=== PATIENT | male | born 1965 | race Caucasian/White ===

== ENCOUNTER 2017-02-28 14:08 | Emergency (ER) | payer OTHER ==
[~2017-02-28] VITALS: Ht 177.8 cm; Wt 88.0 kg
[~2017-02-28 14:08] MED LIST: ALBU1AER9 PO; ASPI81TA28 PO; CANA1TAB PO; LIRA18IN INJ
[2017-02-28 14:11] VITALS: BP 143/95; TEMP 36.7; Ht 177.8 cm; Wt 88.0 kg
[2017-02-28] MEDS ORDERED: LIDOCAINE/EPINEPHRINE 1% 20 ML VIAL INFIL STA (14:39)
--- NOTE | 2017-02-28 14:48 | EMERGENCY ROOM VISIT NOTE ---
ED Visit Note First contact with patient: 14:17 CHIEF COMPLAINT: Hand laceration HISTORY OF PRESENT ILLNESS: This 51-year-old male patient presents to the emergency department approximately one hour after cutting the posterior aspect of the right hand, just proximal to the fifth finger while at work. The patient states he hit his hand on a sharp, dirty oil cap. There was no crush injury or fall. The bleeding has stopped. Denies weakness or numbness of the hand or fingers. The patient rates the pain as minimal and 0/10. The patient denies any other injuries. The patient's Tetanus shot is up to date. REVIEW OF SYSTEMS: A 6 system review of systems was completed with positives and pertinent negatives listed in the HPI. ALLERGIES: None MEDICATIONS: Invokana, Flonase, Victoza, Lisinopril, Levitra PMH: Diabetes Mellitus Type 2 SOCIAL HISTORY: The patient lives locally with family. He denies drug, alcohol, tobacco use. PHYSICAL EXAM: Vital Signs: Reviewed Nurse's notes, vital signs stable. GENERAL : This is a 51 year old white male, in no acute distress, well-developed, well- nourished. SKIN: There is a 2 cm long laceration on the posterior aspect of the right hand, just proximal to the 5th digit. There is a small, 0.5cm laceration on the posterior aspect of the right hand, just proximal to the 4th digit. The edges gape apart with traction. There is no foreign material in the wound and it looks clean. There is minimal active bleeding. No deep structures such as tendons, bones, or significant blood vessels are seen in the base of the wound. Normal strength and movement of the fingers and wrist. Capillary refill less than 2 seconds. Normal sensation to light and sharp touch. EMERGENCY DEPARTMENT COURSE: I examined the patient. Verbal consent was obtained to perform the procedure, which was performed by the PA student under my direct supervision. Using sterile technique the wound was cleansed with Betadine. The area was sterilely draped. 5 ml of 1% lidocaine with epinephrine was used to anesthetize the laceration on the hand. Once the patient was anesthetized, the wound was copiously irrigated under pressure with sterile saline. The wound was explored and was as described above. The larger laceration was repaired using 10 simple interrupted 4-0 nylon sutures with the wound edges being well approximated. The smaller laceration was repaired using 2 simple interrupted 4-0 nylon sutures with the wound edges being well approximated. The patient tolerated the procedure well. Hemostasis was achieved. The area was cleaned with sterile saline and dressed with bacitracin ointment and bandage. The patient will be started on Keflex to prevent infection , due to his history of diabetes. The patient was discharged home in good condition. I attest that I have personally reviewed the patient's current medication list. Blood Pressure Screening: Patient was found to have a slightly elevated blood pressure due to circumstances. I do not believe that the patient requires hypertension monitoring. DIFFERENTIAL DIAGNOSIS: Laceration, abrasion, contusion, avulsion, fracture, tendon injury, and others DIAGNOSIS: Hand laceration Current/Historical Medications Scheduled Canagliflozin (Invokana), 300 MG PO DAILY Cephalexin Monohydrate (Keflex), 500 MG PO TID Fluticasone Propionate (Nasal) (Flonase Allergy Relief), 2 SPRAYS TOSHA DAILY Liraglutide (Victoza), 1.8 MG INJ DAILY Lisinopril (Lisinopril), 2.5 MG PO DAILY Vardenafil (Levitra), 10 MG PO DIRECTED [Proair], 2 PUFFS INH PRN UD Allergies Coded Allergies: No Known Allergies (Unverified , 09/29/13) Vital Signs Date Time Temp Pulse Resp B/P (MAP) Pulse Ox O2 Delivery O2 Flow Rate FiO2 02/28/17 15:44 112 16 95 02/28/17 14:11 36.7 114 16 143/95 96 Room Air Departure Information Impression Primary Impression: Hand laceration Dispostion Home / Self-Care Condition GOOD Prescriptions Cephalexin Monohydrate (Keflex) 500 Mg Cap 500 MG PO TID for 7 Days, #21 CAP Prov: Lucita Justice PA-C 02/28/17 Referrals Benoit Valverde DO (PCP) Patient Instructions ED Laceration Hand, [facility] Additional Instructions You have received 11 sutures on your right hand. These sutures are NOT dissolvable and WILL need to be removed by a health care provider in 8-10 days. You can return to the Emergency Department or contact your Primary Care Provider to have the sutures removed. Cephalexin(Keflex) 500mg: Take one pill three times daily for 7 days to prevent skin infection. All antibiotics can cause diarrhea. If this occurs and you feel worse or it does not resolve in 1-2 days follow up with your doctor or return to the Emergency Department as this could be signs of serious underlying problems. Any medication can cause an allergic reaction, stop the pills immediately and return to the ER for rash, hives, breathing difficulties, or swelling. Proper wound care is essential for adequate wound healing and infection prevention. You can shower and clean the wound with soap and water. Do not scour over the wound, pat dry with a towel. Do not submerse the wound (i.e. bathe or dish wash) until the sutures have been removed. You can use an antibiotic ointment with a dressing over the wound for the next 3-4 days. After this time you may leave the wound dry and open to the air. If crust develops over the wound you can use a Q-tip to apply a 1:1 peroxide:water solution to clean the wound. Look for signs of infection of the wound including: increased pain, swelling, foul discharge, streaking, or increased temperature. If any of these are noticed you should return to the Emergency Department for further assessment and treatment. As with any laceration you may have received nerve damage to the surrounding tissues. This damage may or may not be permanent. You should keep the area covered with sunscreen for the first 6 months to 1 year when at risk for exposure to help minimize scarring. You can also use scar reducing creams or Vitamin E oil to help minimize scarring. For pain control, you can use the following [id number] medicines (if >12 yo): Ibuprofen(Motrin, Advil) may be used for fever or pain. Use 600mg every six hours as needed. Take with food. Avoid using more than 2400mg in a 24 hour period. Do not use 2400mg per day for more than three consecutive days without physician direction. Prolonged inappropriate use can lead to stomach upset or ulcers. (AND/OR) Acetaminophen(Tylenol) may be used for fever or pain. Use 1000mg every six hours as needed. Avoid using more than 3000mg in a 24 hour period. Return to the emergency department if your symptoms worsen despite treatment course outlined above. Problem Qualifiers Primary Impression: Hand laceration Encounter type: initial encounter Foreign body presence: without foreign body Laterality: right Qualified Codes: S61.411A - Laceration without foreign body of right hand, initial encounter
[2017-02-28] MEDS ORDERED: CEPH500C PO (15:12)
[2017-02-28 15:44] VITALS: PULSE 112; O2SAT 95
[2017-02-28] MEDS ORDERED: FLUT0.15 NAE (15:47)
[2017-02-28] MEDS ORDERED: PROAIR INH (15:47)
[2017-02-28] MEDS ORDERED: VARD10TA PO (15:47)
[2017-02-28] MEDS ORDERED: LISI2.5T5 PO (15:47)
[2017-02-28] MEDS ORDERED: CANA1TAB3 PO (15:48)
== END 2017-02-28 15:45 | disposition home or self-care (01) ==
LOC: C.EDB 14:09 → C.EDD 15:45
DX: S61.411A Laceration without foreign body of right hand, initial encounter (principal); W45.8XXA Other foreign body or object entering through skin, initial encounter; Y99.0 Civilian activity done for income or pay